=== PATIENT | male | born 1955 | race Caucasian/White ===

== ENCOUNTER 2021-08-08 20:08 | Inpatient (IN) ==
[2021-08-08] MEDS ORDERED: IOPAMIDOL 100 ML BOTTLE IV ONE (20:09)
--- NOTE | 2021-08-08 20:14 | Emergency Department Note ---
HPI General Chief complaint: Shortness of Breath/Dyspnea Stated complaint: shortness of breath Time Seen by Provider: 08/08/21 20:14 Source: patient and EMS Mode of arrival: EMS Limitations: no limitations History of Present Illness HPI Narrative: 65-year-old male with past medical history of COPD and possibly CAD presenting with chest pain and shortness of breath. Patient states about 2 and half hours prior to arrival he developed intermittent left-sided, sharp stabbing chest pain. Pain seems to be worse with deep breathing. Also endorses mild shortness of breath. He reportedly was hypoxic to 88% on room air. He was given 100 mcg of fentanyl and nitroglycerin by EMS without improvement in his pain. Patient states that previously there was an attempt to place a stent in his heart but they were unable to place it. He reportedly was on anticoagulation but is no longer on it. Unclear if he has an actual history of CAD or [place]. Patient denies any history of pulmonary embolism or DVT. No fever, cough, vomiting, abdominal pain, or leg swelling. He is a smoker, approximately half pack per day. Filemon mann notes he was watching football when the pain began. He states he has had a few beers and a few shots today. Not on home O2. Related Data Home Medications Medication Instructions Recorded Confirmed budesonide-formoterol HFA 160 2 puff CONTINUOUS INHALATION BID 08/09/21 08/09/21 mcg-4.5 mcg/actuation aerosol inhaler (Symbicort) clonazepam 1 mg tablet 1 tab PO QHS 08/09/21 08/09/21 ipratropium 0.5 mg-albuterol 3 mg 3 ml CONTINUOUS NEBULIZATION QID 08/09/21 08/09/21 (2.5 mg base)/3 mL nebulization PRN soln lisinopril 5 mg tablet 1 tab PO QDAY 08/09/21 08/09/21 phenobarbital 97.2 mg tablet 2 tab PO QHS 08/09/21 08/09/21 rosuvastatin 40 mg tablet 1 tab PO QDAY 08/09/21 08/09/21 tiotropium bromide 18 mcg capsule 1 cap CONTINUOUS INHALATION QDAY 08/09/21 08/09/21 with inhalation device (Spiriva with HandiHaler) Allergies Allergy/AdvReac Type Severity Reaction Status Date / Time promethazine [From Phenergan] Allergy Unknown Verified 08/08/21 20:17 indomethacin [From Indocin] Allergy Verified 08/08/21 20:17 Review of Systems ROS ROS Narrative: Narrative: Constitutional: Denies fever or chills Eyes: Denies vision change ENT ED: Denies throat pain Cardiovascular: Reports chest pain; Denies palpitations, edema or syncope Respiratory: Reports shortness of breath; Denies cough Gastrointestinal: Denies abdominal pain, nausea or vomiting Genitourinary: Denies dysuria or frequency Musculoskeletal: Denies back pain or joint swelling Integumentary: Denies rash Neurological: Denies headache or weakness Psychiatric: Denies anxiety Endocrine: Denies fatigue Hematological/Lymphatic: Denies easy bleeding PFSH Narrative Patient History Narrative: Narrative: Medical/Surgical/Family History All Active Problems (Updated 08/09/21 @ 01:13 by Elmo Casper MD) Hypoxia (Acute) Lung mass (Acute) COPD (chronic obstructive pulmonary disease) (Acute) Exam Narrative Narrative: Narrative: General Limitations: no limitations General appearance: Present alert, in no apparent distress and other (Oc casionally wincing in pain) Head Head: Present atraumatic and normocephalic Eye Eye: Present normal appearance and EOMI; Absent scleral icterus or conjunctival injection ENT ENT: Present mucous membranes moist Neck Neck: Present normal inspection, full ROM and trachea midline Chest Chest: Present symmetric chest wall rise Respiratory Respiratory: Present normal lung sounds bilaterally; Absent respiratory distress, wheezes, stridor, accessory muscle use or prolonged expiratory phase Cardiovascular Cardiovascular: Present regular rate and normal rhythm; Absent systolic murmur or diastolic murmur Adbominal Abdominal: Present soft; Absent distention, tenderness, guarding, rebound, rigidity, organomegaly or mass Extremities Extremities: Present normal inspection; Absent pretibial edema Back Back: Present normal inspection Neurological Neurological: Present alert, oriented X3 and CN II-XII intact; Absent motor sensory deficit Psychiatric Psychiatric: Present normal affect and normal mood Skin Skin: Present warm (WNL) and dry Course Consultations Consultation #1: Dr. Ferguson, hospitalist Time: 00:50 Vital Signs Vital signs: Vital Signs Pulse Rate 88 08/08/21 20:13 Respiratory Rate 16 08/08/21 20:13 Blood Pressure 108/59 08/08/21 20:13 Pulse Oximetry (%) 91 08/08/21 20:13 Temperature 98.5 F 08/08/21 20:14 Pulse Rate 82 08/09/21 00:46 Respiratory Rate 20 08/09/21 00:46 Blood Pressure 109/68 08/09/21 00:46 Pulse Oximetry (%) 90 08/09/21 00:46 MDM MDM Narrative Medical decision making narrative: 65-year-old male presenting with chest pain and dyspnea. He was hypoxic to 88% on room air here. He is stable on 3 L via nasal cannula. Patient still endorsing stabbing episodes of pain every few minutes that resolved spontaneously. EKG shows subtle ST changes in II, III, and aVF without reciprocal changes. Concern for acute coronary syndrome versus pulmonary emboli sm. IV morphine given for pain. Will obtain labs, chest x-ray, and reevaluate. Labs notable for mild hyponatremia to 132 but are otherwise normal. Troponin is negative. Patient's pain improved after IV Toradol. He remains hypoxic when trying to wean off of O2. CTA of the chest shows no pulmonary embolus but a 3.6 x 1.2 cm masslike density is present in the left lung which may be new maligna ncy. Given his persistent hypoxia and CT findings, will admit for further management. Prednisone 60 mg p.o. given as there may be a component of COPD to his hypoxemia. Patient discussed with admitting hospitalist, Dr. Ferguson. Holding orders placed. Lab Data Lab results reviewed: Yes I reviewed the patient's lab results. Result diagrams: 08/08/21 20:45 08/08/21 20:45 Labs: Lab Results 08/08/21 08/08/21 08/08/21 Range/Units 20:45 20:45 20:45 WBC 7.3 (4.5-11.0) K/mcL RBC 4.73 (4.63-6.08) M/mcL Hgb 14.2 (13.7-17.5) g/dL Hct 42.7 (40.1-51.0) % MCV 90.3 (80.0-100.0) fL MCH 30.0 (26.0-34.0) pg MCHC 33.3 (31.0-36.0) g/dL RDW 14.6 H (11.5-14.5) % Plt Count 183 (140-440) K/mcL MPV 10.2 (7.4-10.4) fL Neut % (Auto) 80.1 H (38.0-78.0) % Lymph % (Auto) 9.0 L (15.5-49.0) % [place] % (Auto) 8.7 (1.0-12.0) % Eos % (Auto) 1.4 (0.0-7.0) % Baso % (Auto) 0.8 (0.0-2.0) % Lymph # (Auto) 0.65 L (1.50-4.80) K/mcL [place] # (Auto) 0.63 (0.10-0.90) K/mcL Eos # (Auto) 0.10 (0.00-0.70) K/mcL Baso # (Auto) 0.06 (0.00-0.30) K/mcL Absolute Neutrophils 5.81 (1.80-8.00) K/mcL D-Dimer 0.33 (0.27-0.50) ug/mL Sodium 132 L (133-145) mmol/L Potassium 4.2 (3.3-5.1) mmol/L Chloride 96 (96-108) mmol/L Carbon Dioxide 23 (22-30) mmol/L Anion Gap 13.0 (8.0-16.0) BUN 13 (8-23) mg/dL Creatinine 0.6 L (0.7-1.2) mg/dL GFR Calculation 106 Glucose 107 H (70-105) mg/dL Calcium 7.8 L (8.6-10.4) mg/dL Total Bilirubin < 0.2 (0.1-1.0) mg/dL AST 17 (<40) U/L ALT 14 (<40) U/L Alkaline Phosphatase 78 (39-117) U/L Troponin T (<0.03) ng/mL Total Protein 6.6 (5.9-8.4) gm/dL Albumin 3.9 (3.2-5.2) gm/dL Globulin 2.7 (2.2-3.7) gm/dL Albumin/Globulin Ratio 1.4 (1.0-2.3) POC Troponin I 0.02 (0.02-0.08) ng/mL 08/08/21 Range/Units 20:45 WBC (4.5-11.0) K/mcL RBC (4.63-6.08) M/mcL Hgb (13.7-17.5) g/dL Hct (40.1-51.0) % MCV (80.0-100.0) fL MCH (26.0-34.0) pg MCHC (31.0-36.0) g/dL RDW (11.5-14.5) % Plt Count (140-440) K/mcL MPV (7.4-10.4) fL Neut % (Auto) (38.0-78.0) % Lymph % (Auto) (15.5-49.0) % [place] % (Auto) (1.0-12.0) % Eos % (Auto) (0.0-7.0) % Baso % (Auto) (0.0-2.0) % Lymph # (Auto) (1.50-4.80) K/mcL [place] # (Auto) (0.10-0.90) K/mcL Eos # (Auto) (0.00-0.70) K/mcL Baso # (Auto) (0.00-0.30) K/mcL Absolute Neutrophils (1.80-8.00) K/mcL D-Dimer (0.27-0.50) ug/mL Sodium (133-145) mmol/L Potassium (3.3-5.1) mmol/L Chloride (96-108) mmol/L Carbon Dioxide (22-30) mmol/L Anion Gap (8.0-16.0) BUN (8-23) mg/dL Creatinine (0.7-1.2) mg/dL GFR Calculation Glucose (70-105) mg/dL Calcium (8.6-10.4) mg/dL Total Bilirubin (0.1-1.0) mg/dL AST (<40) U/L ALT (<40) U/L Alkaline Phosphatase (39-117) U/L Troponin T < 0.01 (<0.03) ng/mL Total Protein (5.9-8.4) gm/dL Albumin (3.2-5.2) gm/dL Globulin (2.2-3.7) gm/dL Albumin/Globulin Ratio (1.0-2.3) POC Troponin I (0.02-0.08) ng/mL ED POC Tests ED POC Tests: SUZETTE - SARS Antigen Negative Radiology Data Radiology results reviewed: Yes I reviewed the patient's radiology results. Radiology results narrative: CXR: Mass versus nodule in the left lung, no focal infiltrate, per my interpretation. CTA chest: No pulmonary embolus. 3.6 x 1.2 cm masslike density in the left lingula with irregular margins, infectious consolidative change versus scarring versus pulmonary mass, per outside radiology interpretation. EKG Data EKG #1: EKG attestation: Yes I reviewed and interpreted this EKG. EKG results narrative: Normal sinus rhythm at [address] elevations not greater than 1 mm noted in II, III, and aVF without reciprocal changes. Interpretation: nonspecific ST-T wave changes EKG #2: EKG attestation: Yes I reviewed and interpreted this EKG. and Yes There are no EKG findings of acute coronary syndrome EKG results narrative: Normal sinus rhythm at [address] elevation or depression noted. Subtle ST changes in inferior leads are no longer evident when compared to previous EKG. Interpretation: no acute changes Discharge Plan Patient/Caregiver Discharge Instructions Pt seen by NEUROLOGY TECHNICIAN/PA only: No Clinical Impression: Hypoxia, Lung mass, COPD (chronic obstructive pulmonary disease) Patient Disposition: Xfer As Inpt ([facility]) Follow up with: No,PCP [Referring] - Prescriptions: No Action phenobarbital 97.2 mg tablet 2 tab PO QHS 0RF ipratropium-albuterol 0.5 mg-3 mg(2.5 mg base)/3 mL solution for nebulization 3 ml continuous nebulization QID PRN (Reason: Shortness Of Breath) 0RF clonazepam 1 mg tablet 1 tab PO QHS 0RF lisinopril 5 mg tablet 1 tab PO QDAY 0RF rosuvastatin 40 mg tablet 1 tab PO QDAY 0RF Spiriva with HandiHaler 18 mcg capsule, w/inhalation device 1 cap continuous inhalation QDAY 0RF budesonide-formoterol [Symbicort] 160-4.5 mcg/actuation HFA aerosol inhaler 2 puff continuous inhalation BID 0RF
[2021-08-08] MEDS ORDERED: ASPIRIN 81 MG TAB.CHEW CHEWED ONE (20:26)
[2021-08-08] MEDS ORDERED: morphine 4 MG/ML VIAL IV ONE (20:26)
[2021-08-08] MEDS ORDERED: 0.9 % SODIUM CHLORIDE 1,000 ML IV ONE (20:39)
[2021-08-08] MEDS ORDERED: HYDROmorphone 1 MG/ML SYRINGE IV ONE (20:57)
[2021-08-08 22:14] LABS: Basophils # (Auto) 0.06 K/mcL (0.00-0.30); Basophils % (Auto) 0.8 % (0.0-2.0); Eosinophils % (Auto) 1.4 % (0.0-7.0); Hematocrit 42.7 % (40.1-51.0); Hemoglobin 14.2 g/dL (13.7-17.5); Lymphocytes # (Auto) 0.65 K/mcL (1.50-4.80); Mean Cell Volume 90.3 fL (80.0-100.0); Mean Corpuscular HGB Conc 33.3 g/dL (31.0-36.0); Mean Platelet Volume 10.2 fL (7.4-10.4); Monocytes # (Auto) 0.63 K/mcL (0.10-0.90); Monocytes % (Auto) 8.7 % (1.0-12.0); Neutrophils % (Auto) 80.1 % (38.0-78.0); Platelet Count 183 K/mcL (140-440); RBC 4.73 M/mcL (4.63-6.08); Red Cell Distribution Width 14.6 % (11.5-14.5); WBC 7.3 K/mcL (4.5-11.0)
[2021-08-08] MEDS ORDERED: KETOROLAC 30 MG/ML VIAL IV ONE (22:34)
[2021-08-08 22:39] LABS: ALT/SGPT 14 U/L (<40); AST/SGOT 17 U/L (<40); Albumin 3.9 gm/dL (3.2-5.2); Albumin/Globulin Ratio 1.4 (1.0-2.3); Alkaline Phosphatase 78 U/L (39-117); Bilirubin,Total < 0.2 mg/dL (0.1-1.0); Blood Urea Nitrogen 13 mg/dL (8-23); Calcium 7.8 mg/dL (8.6-10.4); Carbon Dioxide 23 mmol/L (22-30); Chloride 96 mmol/L (96-108); Globulin 2.7 gm/dL (2.2-3.7); Glomerular Filtration Rate 106; Glucose 107 mg/dL (70-105)
[2021-08-09] MEDS ORDERED: predniSONE 20 MG TABLET PO ONE (00:55)
[2021-08-09] MEDS ORDERED: ACETAMINOPHEN 160 MG/5 ML ORAL.SOL PO PRN (01:13)
[2021-08-09] MEDS: morphine 2 MG/ML VIAL IV PRN ×2 (01:59→05:27)
[2021-08-09] MEDS ORDERED: 0.9 % SODIUM CHLORIDE 10 ML SYRINGE IV SCH (06:00)
--- NOTE | 2021-08-09 06:44 | XRay Report ---
CLINICAL INFORMATION: Chest pain and dyspnea COMPARISON: None. TECHNIQUE: PA and Lateral views FINDINGS: The heart size, mediastinum and pulmonary vessels are unremarkable. Hyperventilatory changes suggesting bronchitis or asthma appreciated. No infiltrates. A 15 mm densely calcified granuloma is seen in the left lower lobe with a few tiny calcified granulomas in the perihilar regions of both lungs. There are no effusions. The bones and soft tissues are within normal limits. IMPRESSION: Bronchitis. 15 mm calcified left lower lobe benign granuloma Interpreted and Authenticated by: Joaquim Edwards 08/09/21
--- NOTE | 2021-08-09 08:03 | Internal Med History&Physical ---
HPI History of Present Illness Patient information: Note initiated : 08/09/21 at 7:57 am Service Date, if different from initiated Date: [] Patient: Pito Christine a 65 y/o M admitted on 08/09/21 for shortness of breath. Chief Complaint: [] History of present illness: Mr. Christine is a 65 year old M Presents to ED with intermittent stabbing left-sided chest pain as well as some shortness of breath. It is pleuritic in nature and made worse with deep breathing. It was noted to be 88% of oxygen on room air by EMS. He is active smoker. Work-up in the ER revealed an unremarkable troponin. Sodium mildly low. He was hypoxic when weaned off O2. I was told overnight that the CT of the chest showed no pulmonary embolism but a 3.6 x 1.2 cm masslike density in the left lung is concerning for new malignancy. The follow-up read by our radiologist mentions no PE it does show a small pleural-based lesion representing likely fibrosis, moderate bronchitis like chronicity as shown. Calcified granuloma left apex noted. No mention of 3.6 x 1.2 mass. Patient was treated for COPD admitted due to oxygen requirement. Patient denied feeling short of breath, he has a chronic cough. Patient states the chest pain is worsened by cough and patient states it feels like a muscle. Action saturations on room air while I talk to them ranged from 85-89. Patient denies shortness of breath. Is not been evaluated in the past or home oxygen. Patient wanting to go home right now and I believe he will leave AGAINST MEDICAL ADVICE if he does not get out today. I told him that I wanted to get him evaluated from oxygen because it appeared to qualify. Review of Systems: Pertinent positive as above. Denies headache/fever/chills/nausea/vomiting/chest or abdominal pain/cough/dyspnea/diarrhea. Remaining 10 point review of system reviewed and negative PFSH PFSH All Active Problems (Updated 08/09/21 @ 01:13 by Elmo Casper MD) Hypoxia (Acute) Lung mass (Acute) COPD (chronic obstructive pulmonary disease) (Acute) MEDS/ALLERGIES Home Medications and Allergies Home Medications Medication Instructions Recorded Confirmed Type amitriptyline 25 mg tablet 1 tab PO HS 08/09/21 08/09/21 History budesonide-formoterol HFA 160 2 puff CONTINUOUS INHALATION BID 08/09/21 08/09/21 History mcg-4.5 mcg/actuation aerosol inhaler (Symbicort) clonazepam 1 mg tablet 1 tab PO QHS 08/09/21 08/09/21 History ipratropium 0.5 mg-albuterol 3 mg 3 ml CONTINUOUS NEBULIZATION QID 08/09/21 08/09/21 History (2.5 mg base)/3 mL nebulization PRN soln lisinopril 5 mg tablet 1 tab PO QDAY 08/09/21 08/09/21 History phenobarbital 97.2 mg tablet 2 tab PO QHS 08/09/21 08/09/21 History rosuvastatin 40 mg tablet 1 tab PO QDAY 08/09/21 08/09/21 History tiotropium bromide 18 mcg capsule 1 cap CONTINUOUS INHALATION QDAY 08/09/21 08/09/21 History with inhalation device (Spiriva with HandiHaler) Allergies Allergy/AdvReac Type Severity Reaction Status Date / Time Penicillins Allergy Severe Anaphylaxis Verified 08/09/21 02:06 promethazine [From Phenergan] Allergy Unknown Verified 08/08/21 20:17 indomethacin [From Indocin] Allergy Verified 08/08/21 20:17 EXAM Constitutional Vitals: Temp Pulse Resp BP Pulse Ox 98.2 F 70 16 106/64 94 08/09/21 06:51 08/09/21 06:51 08/09/21 06:51 08/09/21 06:51 08/09/21 06:51 Exam: General: Alert, Awake, No acute Distress Eyes/N/T: EOMI, PERRL, Head/Neck: neck supple, normocephalic atraumatic CV: RRR, No murmurs, normal s1/s2 Pulm: Clear b/l, no wheezing/rhonchi/rales. Prolonged expiratory phase Abd: soft, nontender, +BS x4 Ext: no clubbing/cyanosis/edema Neuro: Alert, no focal deficits, moves all extremities, CN 2-12 grossly intact, symmetrical strength b/l upper/lower, sensations intact b/l upper/lower Skin: warm/dry DATA Data Completed and Pending Labs: Labs from last 24 hours 08/08/21 08/08/21 08/08/21 20:45 20:45 20:45 WBC RBC Hgb Hct MCV MCH MCHC RDW Plt Count MPV Neut % (Auto) Lymph % (Auto) [place] % (Auto) Eos % (Auto) Baso % (Auto) Lymph # (Auto) [place] # (Auto) Eos # (Auto) Baso # (Auto) Absolute Neutrophils D-Dimer 0.33 Sodium 132 L Potassium 4.2 Chloride 96 Carbon Dioxide 23 Anion Gap 13.0 BUN 13 Creatinine 0.6 L GFR Calculation 106 Glucose 107 H Calcium 7.8 L Total Bilirubin < 0.2 AST 17 ALT 14 Alkaline Phosphatase 78 Troponin T < 0.01 Total Protein 6.6 Albumin 3.9 Globulin 2.7 Albumin/Globulin Ratio 1.4 POC Troponin I 0.02 08/08/21 20:45 WBC 7.3 RBC 4.73 Hgb 14.2 Hct 42.7 MCV 90.3 MCH 30.0 MCHC 33.3 RDW 14.6 H Plt Count 183 MPV 10.2 Neut % (Auto) 80.1 H Lymph % (Auto) 9.0 L [place] % (Auto) 8.7 Eos % (Auto) 1.4 Baso % (Auto) 0.8 Lymph # (Auto) 0.65 L [place] # (Auto) 0.63 Eos # (Auto) 0.10 Baso # (Auto) 0.06 Absolute Neutrophils 5.81 D-Dimer Sodium Potassium Chloride Carbon Dioxide Anion Gap BUN Creatinine GFR Calculation Glucose Calcium Total Bilirubin AST ALT Alkaline Phosphatase Troponin T Total Protein Albumin Globulin Albumin/Globulin Ratio POC Troponin I A/P Narrative A/P Narrative: A: *Pleuritic chest pain likely MSK: *Acute vs more likely chronic hypoxic respiratory failure: 2/2 underlying COPD *COPD (not on home O2): I suspect that he has had chronically low oxygen given his underlying COPD given his asymptomatic status *No lung mass on official CTA read by our radiologist *Tobacco abuse: *HTN/HLD: *Depression/anxiety: *Hyponatremia, mild: P: -Home oxygen evaluation by RD -cont home pysch meds -hold home ACEI for low normal BP -Smoking cessation counseling -Patient wanted to go home and suspect will leave AMA if does not go, I told him I wanted to get home oxygen evaluation set up because he will likely qualify. I will send him home once I get the home oxygen set up. -ppx: lovenox Time Spent With Patient Time: Total time spent is greater than 50% in coordination of care (as documented) at patient's floor/unit and/or counseling patient: QUALITY VTE Deep Vein Thrombosis/Pulmonary Embolism Present on Admission: No
--- NOTE | 2021-08-09 08:09 | Cat Scan Report ---
CLINICAL INFORMATION: Chest pain and dyspnea COMPARISON: None. TECHNIQUE: 80ml of Isovue-370 were injected intravenously. Using SmartPrep to maximize pulmonary artery opacification, .625mm helical slices were obtained from the lung apices through the lung bases. Following reconstruction, 2.5 mm sagittal, coronal, and axial reformations were processed. The exam was reviewed at mediastinal, lung, and bone windows. The exam was performed using radiation dose optimization techniques including, but not limited to, automated exposure control, adjustment of the mA and/or kV according to patient size and use of iterative reconstruction technique. FINDINGS: Pulmonary parenchymal windows show elevated lung volumes and wall thickening/dilatation of the bronchi compatible with moderate bronchitis or asthma. Moderate chronic bronchitis or asthma. Two densely calcified granulomas are present in the left lun mm in the lateral left lower lobe and 8 mm the left apex. Few tiny calcified granulomas seen in the perihilar regions. There are no soft tissue nodules. A small consolidated region of airspace disease in the lingular region likely represents fibrosis. There is also other smaller scattered pleural-based foci of scarring throughout both mid and lower lungs. Pleural spaces are unremarkable-no effusions. Mediastinal windows show the heart is grossly normal in size and configuration. The pulmonary arteries are normal diameter and well-opacified without evidence of embolus. The ascending thoracic aorta measures the upper limits of normal for age: 3.9 cm. The thoracic aortic arch and descending thoracic aorta are also normal in diameter. Mild diffuse intimal thickening appreciated There is no adenopathy in the mediastinal, hilar or axillary regions. Esophagus is grossly normal. The thyroid is unremarkable. Bones and soft tissues the chest wall are normal. Images through the superior abdomen are unremarkable. IMPRESSION: 1. No evidence of pulmonary embolus or other acute cardiopulmonary process. 2. Small pleural-based region of consolidation in the lingular region almost certainly represents fibrosis. A small pneumonia is possible, but less likely. Suggest plain film follow-up in 3-4 weeks. 3. Moderate bronchitis-likely chronic. 4. Calcified granulomas in the left apex and left lower lobe. No evidence of pulmonary malignancy. Interpreted and Authenticated by: Joaquim Edwards 08/09/21
[2021-08-09] MEDS ORDERED: ATORVASTATIN 40 MG TABLET PO SCH (09:00)
[2021-08-09] MEDS ORDERED: TIOTROPIUM BROMIDE 18 MCG INHALANT INH SCH (09:00)
[2021-08-09] MEDS ORDERED: methylPREDNISolone SOD SUCC 40 MG/ML VIAL IV SCH (09:00)
[2021-08-09] MEDS ORDERED: PHENobarbital 32.4 MG TABLET PO SCH (09:00)
[2021-08-09 09:10] LABS: Hematocrit 46.5 % (40.1-51.0); Hemoglobin 15.1 g/dL (13.7-17.5); Mean Cell Volume 91.2 fL (80.0-100.0); Mean Corpuscular HGB Conc 32.5 g/dL (31.0-36.0); Mean Platelet Volume 9.9 fL (7.4-10.4); Platelet Count 185 K/mcL (140-440); Red Cell Distribution Width 14.6 % (11.5-14.5)
[2021-08-09 09:45] LABS: ALT/SGPT 135 U/L (<40); AST/SGOT 191 U/L (<40); Albumin 4.3 gm/dL (3.2-5.2); Albumin/Globulin Ratio 1.9 (1.0-2.3); Alkaline Phosphatase 137 U/L (39-117); Bilirubin,Direct < 0.2 mg/dL (0-0.3); Bilirubin,Total 0.2 mg/dL (0.1-1.0); Blood Urea Nitrogen 13 mg/dL (8-23); Calcium 8.4 mg/dL (8.6-10.4); Carbon Dioxide 27 mmol/L (22-30); Chloride 96 mmol/L (96-108); Globulin 2.3 gm/dL (2.2-3.7); Glomerular Filtration Rate 106; Glucose 154 mg/dL (70-105); Lactate Dehydrogenase 324 U/L (135-225); Phosphorous 3.3 mg/dL (2.5-4.5); Triglycerides 53 mg/dL (<150); Uric Acid 5.8 mg/dL (2.5-8.0)
[2021-08-09 09:49] LABS: Lymphocytes % 5 % (15-49); Monocytes % (Manual) 1 % (1-12); Platelet Estimate NORMAL (Normal); RBC Morphology NORMAL (Normal); Segmented Neutrophils % 94 % (38-78)
[2021-08-09 10:21] LABS: Erythrocyte Sedimentation Rate 11 mm/hr (0-15)
[2021-08-09] MEDS ORDERED: INSULIN REGULAR, HUMAN 1 UNIT/0.01 ML UNIT IV ONE (10:21)
[2021-08-09] MEDS ORDERED: DEXTROSE 50% 50 ML SYRINGE IV ONE (10:21)
--- NOTE | 2021-08-09 10:26 | Discharge Summary ---
Discharge Provider Provider Patient information: Note initiated : 08/09/21 at 10:24 am Service Date, if different from initiated Date: [] Patient: Pito Christine 65 y/o M admitted on 08/09/21 for shortness of breath. Chief Complaint: [] Date of admission: 08/09/21 01:24 Discharge date: 08/09/21 Primary care physician: Unknown Unknown Consults: 08/09/21 Consult to Physician [CONS] Stat Comment: Consulting Provider: Parrish Ferguson Reason For Exam: Physician to Consult Discharge Meds Discharge Medications Home Medications amitriptyline 25 mg tablet 1 tab PO HS 08/09/21 [History Confirmed 08/09/21 Last Taken 08/08/21 21:00] budesonide-formoterol HFA 160 mcg-4.5 mcg/actuation aerosol inhaler (Symbicort) 2 puff CONTINUOUS INHALATION BID 08/09/21 [History Confirmed 08/09/21 Last Taken 08/08/21 21:00] clonazepam 1 mg tablet 1 tab PO QHS 08/09/21 [History Confirmed 08/09/21 Last Taken 08/07/21 21:30] ipratropium 0.5 mg-albuterol 3 mg (2.5 mg base)/3 mL nebulization soln 3 ml CONTINUOUS NEBULIZATION QID PRN 08/09/21 [History Confirmed 08/09/21 Last Taken 08/08/21 19:00 6 ml] phenobarbital 97.2 mg tablet 2 tab PO QHS 08/09/21 [History Confirmed 08/09/21 Last Taken 08/07/21 21:30] rosuvastatin 40 mg tablet 1 tab PO QDAY 08/09/21 [History Confirmed 08/09/21 Last Taken 08/08/21 07:00] tiotropium bromide 18 mcg capsule with inhalation device (Spiriva with HandiHaler) 1 cap CONTINUOUS INHALATION QDAY 08/09/21 [History Confirmed 08/09/21 Last Taken 08/08/21 09:00] COURSE Hospital Course Hospital course: History of present illness: Mr. Christine is a 65 year old M Presents to ED with intermittent stabbing left-sided chest pain as well as some shortness of breath. It is pleuritic in nature and made worse with deep breathing. It was noted to be 88% of oxygen on room air by EMS. He is active smoker. Work-up in the ER revealed an unremarkable troponin. Sodium mildly low. He was hypoxic when weaned off O2. I was told overnight that the CT of the chest showed no pulmonary embolism but a 3.6 x 1.2 cm masslike density in the left lung is concerning for new malignancy. The follow-up read by our radiologist mentions no PE it does show a small pleural-based lesion representing likely fibrosis, moderate bronchitis like chronicity as shown. Calcified granuloma left apex noted. No mention of 3.6 x 1.2 mass. Patient was treated for COPD admitted due to oxygen requirement. Patient denied feeling short of breath, he has a chronic cough. Patient states the chest pain is worsened by cough and patient states it feels like a muscle. Action saturations on room air while I talk to them ranged from 85-89. Patient denies shortness of breath. Is not been evaluated in the past or home oxygen. Patient wanting to go home right now and I believe he will leave AGAINST MEDICAL ADVICE if he does not get out today. I told him that I wanted to get him evaluated from oxygen because it appeared to qualify. Labs came back quite different than yesterday. Now showing hyperkalemia and elevated transaminitis. will repeat to eval for lab error. Patient refused home oxygen evaluation by RT Patient left AMA A: *Pleuritic chest pain likely MSK: *Acute vs more likely chronic hypoxic respiratory failure: 2/2 underlying COPD *COPD (not on home O2): I suspect that he has had chronically low oxygen given his underlying COPD given his asymptomatic status *No lung mass on official CTA read by our radiologist *Tobacco abuse: *HTN/HLD: *Depression/anxiety: *Hyponatremia, mild: *Transaminitis: Discharge diagnosis: Acute on chronic hypoxic respiratory failure allergic chest pain COPD Secondary discharge diagnosis: Tobacco abuse hypertension depression anxiety Time Spent with Patient Time attestation: Total time spent providing and/or coordinating discharge services: Time spent: Greater than 30 minutes EXAM Constitutional Vitals: Temp Pulse Resp BP Pulse Ox 98.2 F 70 16 106/64 94 08/09/21 06:51 08/09/21 06:51 08/09/21 06:51 08/09/21 06:51 08/09/21 06:51 Discharge Data Data Completed and Pending Labs on day of discharge: Labs from last 24 hours 08/09/21 08/09/21 08/09/21 08:28 08:27 08:27 WBC 5.0 RBC 5.10 Hgb 15.1 Hct 46.5 MCV 91.2 MCH 29.6 MCHC 32.5 RDW 14.6 H Plt Count 185 MPV 9.9 Neut % (Auto) Lymph % (Auto) [place] % (Auto) Eos % (Auto) Baso % (Auto) Lymph # (Auto) [place] # (Auto) Eos # (Auto) Baso # (Auto) Seg Neutrophils % 94 H Lymphocytes % 5 L Monocytes % (Manual) 1 Absolute Neutrophils Platelet Estimate Normal RBC Morphology Normal ESR 11 D-Dimer Sodium 133 Potassium 5.9 H* Chloride 96 Carbon Dioxide 27 Anion Gap 10.0 BUN 13 Creatinine 0.6 L GFR Calculation 106 Glucose 154 H Uric Acid 5.8 Calcium 8.4 L Phosphorus 3.3 Magnesium 2.3 Total Bilirubin 0.2 Direct Bilirubin < 0.2 GGT 366 H AST 191 H ALT 135 H Alkaline Phosphatase 137 H Lactate Dehydrogenase 324 H Troponin T C-Reactive Protein 2.40 H Total Protein 6.6 Albumin 4.3 Globulin 2.3 Albumin/Globulin Ratio 1.9 Triglycerides 53 Procalcitonin 0.07 POC Troponin I 08/08/21 08/08/21 08/08/21 20:45 20:45 20:45 WBC RBC Hgb Hct MCV MCH MCHC RDW Plt Count MPV Neut % (Auto) Lymph % (Auto) [place] % (Auto) Eos % (Auto) Baso % (Auto) Lymph # (Auto) [place] # (Auto) Eos # (Auto) Baso # (Auto) Seg Neutrophils % Lymphocytes % Monocytes % (Manual) Absolute Neutrophils Platelet Estimate RBC Morphology ESR D-Dimer 0.33 Sodium 132 L Potassium 4.2 Chloride 96 Carbon Dioxide 23 Anion Gap 13.0 BUN 13 Creatinine 0.6 L GFR Calculation 106 Glucose 107 H Uric Acid Calcium 7.8 L Phosphorus Magnesium Total Bilirubin < 0.2 Direct Bilirubin GGT AST 17 ALT 14 Alkaline Phosphatase 78 Lactate Dehydrogenase Troponin T < 0.01 C-Reactive Protein Total Protein 6.6 Albumin 3.9 Globulin 2.7 Albumin/Globulin Ratio 1.4 Triglycerides Procalcitonin POC Troponin I 0.02 08/08/21 20:45 WBC 7.3 RBC 4.73 Hgb 14.2 Hct 42.7 MCV 90.3 MCH 30.0 MCHC 33.3 RDW 14.6 H Plt Count 183 MPV 10.2 Neut % (Auto) 80.1 H Lymph % (Auto) 9.0 L [place] % (Auto) 8.7 Eos % (Auto) 1.4 Baso % (Auto) 0.8 Lymph # (Auto) 0.65 L [place] # (Auto) 0.63 Eos # (Auto) 0.10 Baso # (Auto) 0.06 Seg Neutrophils % Lymphocytes % Monocytes % (Manual) Absolute Neutrophils 5.81 Platelet Estimate RBC Morphology ESR D-Dimer Sodium Potassium Chloride Carbon Dioxide Anion Gap BUN Creatinine GFR Calculation Glucose Uric Acid Calcium Phosphorus Magnesium Total Bilirubin Direct Bilirubin GGT AST ALT Alkaline Phosphatase Lactate Dehydrogenase Troponin T C-Reactive Protein Total Protein Albumin Globulin Albumin/Globulin Ratio Triglycerides Procalcitonin POC Troponin I Discharge Plan Patient/Caregiver Discharge Instructions Activity: increase activity as tolerated Diet: Regular Diet Activity Restrictions/Additional Instructions: Home oxygen for COPD Prescriptions: Continued phenobarbital 97.2 mg tablet 2 tab PO QHS 0RF ipratropium-albuterol 0.5 mg-3 mg(2.5 mg base)/3 mL solution for nebulization 3 ml continuous nebulization QID PRN (Reason: Shortness Of Breath) 0RF clonazepam 1 mg tablet 1 tab PO QHS 0RF rosuvastatin 40 mg tablet 1 tab PO QDAY 0RF Spiriva with HandiHaler 18 mcg capsule, w/inhalation device 1 cap continuous inhalation QDAY 0RF budesonide-formoterol [Symbicort] 160-4.5 mcg/actuation HFA aerosol inhaler 2 puff continuous inhalation BID 0RF amitriptyline 25 mg tablet 1 tab PO HS 0RF Discontinued lisinopril 5 mg tablet 1 tab PO QDAY 0RF Follow Up Plan Follow up with: No,PCP [Referring] - Patient Disposition: Left Against Medical Advice Prognosis: Undetermined QUALITY VTE Deep Vein Thrombosis/Pulmonary Embolism Present on Admission: No
[2021-08-09 11:48] LABS: ALT/SGPT 130 U/L (<40); AST/SGOT 161 U/L (<40); Albumin 4.2 gm/dL (3.2-5.2); Albumin/Globulin Ratio 1.4 (1.0-2.3); Alkaline Phosphatase 137 U/L (39-117); Bilirubin,Direct < 0.2 mg/dL (0-0.3); Bilirubin,Total 0.3 mg/dL (0.1-1.0); Blood Urea Nitrogen 15 mg/dL (8-23); Calcium 8.5 mg/dL (8.6-10.4); Carbon Dioxide 25 mmol/L (22-30); Chloride 95 mmol/L (96-108); Globulin 3.1 gm/dL (2.2-3.7); Glomerular Filtration Rate 106; Glucose 175 mg/dL (70-105); Lactate Dehydrogenase 304 U/L (135-225); Phosphorous 3.4 mg/dL (2.5-4.5); Triglycerides 54 mg/dL (<150); Uric Acid 5.5 mg/dL (2.5-8.0)
[2021-08-09] MEDS ORDERED: PHENOBARBITAL 97.2 MG PO SCH (21:00)
[2021-08-09] MEDS ORDERED: AMITRIPTYLINE 25 MG TABLET PO SCH (21:00)
[2021-08-09] MEDS ORDERED: clonazePAM 1 MG TABLET PO SCH (21:00)
--- NOTE | 2021-08-10 07:20 | EKG ---
[facility] Test Date: 2021-08-08 Pat Name: Pito Christine Department: ED Room: Gender: Male [employer]: CS : 1955 Requested By: Elmo Casper Order Number: [id number] Anjana MD: Joaquim Vera M.D. Measurements Intervals [place] Rate: 85 P: 76 [place]: 166 QRS: 57 QRSD: 97 T: 65 QT: 363 QTc: 432 Interpretive Statements Sinus rhythm Borderline low voltage, extremity leads Electronically Signed On 08-10-2021 7:20:25 PST by Joaquim Vera M.D. /[id number]
--- NOTE | 2021-08-10 07:20 | EKG ---
[facility] Test Date: 2021-08-08 Pat Name: Pito Christine Department: ED Room: Gender: Male [employer]: CHRISTINE : 1955 Requested By: Elmo Casper Order Number: [id number] [place] MD: Joaquim Vera M.D. Measurements Intervals [place] Rate: 84 P: 79 [place]: 172 QRS: 68 QRSD: 88 T: 73 QT: 363 QTc: 430 Interpretive Statements Sinus rhythm Probable left atrial enlargement Borderline low voltage, extremity leads Minimal ST elevation, inferior leads Electronically Signed On 08-10-2021 7:20:14 PST by Joaquim Vera M.D. /[id number]
== END 2021-08-09 11:10 | disposition left against medical advice (07) | DRG 313 ==
LOC: ED 20:08 → MEDSUR 08-09 01:24
PROVIDERS: ADMIT Internal Medicine; ATTEND Internal Medicine

== ENCOUNTER 2024-04-27 14:57 | Inpatient (IN) ==
[2024-04-27] MEDS ORDERED: MAGNESIUM SULFATE 2 GM/50 ML BAG IV PRN (15:12)
[2024-04-27] MEDS ORDERED: METOCLOPRAMIDE 10 MG/2 ML VIAL IV PRN (15:12)
[2024-04-27] MEDS ORDERED: POTASSIUM CHLORIDE 20 MEQ TABLET PO PRN ×2 (15:12)
[2024-04-27] MEDS ORDERED: ONDANSETRON 4 MG/2 ML VIAL IV PRN (15:12)
[2024-04-27] MEDS ORDERED: POLYETHYLENE GLYCOL 3350 17 GM PACKET PO PRN (15:12)
[2024-04-27] MEDS ORDERED: SENNOSIDES 1 TABLET PO PRN (15:12)
[2024-04-27] MEDS ORDERED: DEXTROSE 31 GM ORAL.SUSP PO PRN (15:12)
[2024-04-27] MEDS ORDERED: POTASSIUM CHLORIDE 40 MEQ in DEXTROSE 5% IN WATER 500 ML IV PRN (15:12)
[2024-04-27] MEDS ORDERED: DEXTROSE 50% 50 ML VIAL IV PRN (15:12)
[2024-04-27] MEDS ORDERED: ENALAPRILAT 1.25 MG/ML VIAL IV PRN (15:16)
[2024-04-27] MEDS: AZITHROMYCIN 500 MG in DEXTROSE 5% IN WATER 250 ML IV SCH (17:51)
[2024-04-27] MEDS: INSULIN LISPRO 1 UNIT/0.01 ML UNIT SQ SCH (17:55)
[2024-04-27] MEDS: SODIUM CHLORIDE 1 GM TABLET PO SCH (17:58)
[2024-04-27] MEDS: IPRATROPIUM/ALBUTEROL 3 ML AMPUL.NEB NEB SCH (18:52)
[2024-04-27] MEDS: BUDESONIDE 0.5 MG/2 ML AMPUL.NEB NEB SCH (18:52)
[2024-04-27] MEDS: DOCUSATE SODIUM 100 MG CAPSULE PO SCH (20:46)
[2024-04-27] MEDS: methylPREDNISolone SOD SUCC 125 MG/2 ML VIAL IV SCH (23:49)
[2024-04-27] MEDS: 0.9 % SODIUM CHLORIDE 10 ML SYRINGE IV SCH (23:49)
[2024-04-28 06:03] LABS: Basophils # (Auto) 0 K/mcL (0.00-0.30); Basophils % (Auto) 0 % (0.0-2.0); Eosinophils # (Auto) 0 K/mcL (0.00-0.70); Eosinophils % (Auto) 0 % (0.0-7.0); Hematocrit 53.2 % (40.1-51.0); Lymphocytes # (Auto) 0.28 K/mcL (1.50-4.80); Mean Cell Volume 94.8 fL (80.0-100.0); Mean Platelet Volume 10.4 fL (8.8-12.5); Monocytes # (Auto) 0.12 K/mcL (0.10-0.90); Monocytes % (Auto) 2.1 % (1.0-12.0); Neutrophils % (Auto) 92.7 % (38.0-78.0); Platelet Count 143 K/mcL (140-440); RBC 5.61 M/mcL (4.63-6.08); Red Cell Distribution Width 14.4 % (11.5-14.5); WBC 5.6 K/mcL (4.5-11.0)
[2024-04-28 06:28] LABS: ALT/SGPT 31 U/L (<40); AST/SGOT 28 U/L (<40); Albumin/Globulin Ratio 1.7 (1.0-2.3); Alkaline Phosphatase 82 U/L (39-117); Bilirubin,Direct < 0.2 mg/dL (0-0.3); Bilirubin,Total 0.3 mg/dL (0.1-1.0); Blood Urea Nitrogen 14 mg/dL (8-23); Calcium 9.1 mg/dL (8.6-10.4); Carbon Dioxide 32 mmol/L (22-30); Chloride 92 mmol/L (96-108); Globulin 2.4 gm/dL (2.2-3.7); Glomerular Filtration Rate 104; Glucose 181 mg/dL (70-105); Lactate Dehydrogenase 170 U/L (135-225); Phosphorous 3.6 mg/dL (2.5-4.5); Potassium 5.7 mmol/L (3.3-5.1); Sodium 131 mmol/L (133-145); Triglycerides 58 mg/dL (<150); Uric Acid 5.8 mg/dL (2.5-8.0)
[2024-04-28] MEDS: SODIUM POLYSTYRENE SULFONATE 15 GM/60 ML SUSPENSION PO ONE (08:55)
[2024-04-28] MEDS: ENOXAPARIN 40 MG/0.4 ML SYRINGE SQ SCH (08:58)
[2024-04-28] MEDS: ACETAMINOPHEN 325 MG TABLET PO PRN (09:06)
[2024-04-28] MEDS: LIDOCAINE 4% TOP PATCH TOPICAL SCH (11:22)
[2024-04-28] MEDS: LISINOPRIL 20 MG TABLET PO SCH (11:23)
[2024-04-28] MEDS: methylPREDNISolone SOD SUCC 40 MG/ML VIAL IV SCH (14:45)
[2024-04-28] MEDS: AZITHROMYCIN 500 MG in 0.9 % SODIUM CHLORIDE 250 ML IV SCH (14:45)
[2024-04-28 20:58] LABS: Blood Urea Nitrogen 14 mg/dL (8-23); Carbon Dioxide 29 mmol/L (22-30); Chloride 91 mmol/L (96-108); Glomerular Filtration Rate 98; Glucose 182 mg/dL (70-105); Potassium 5.8 mmol/L (3.3-5.1); Sodium 132 mmol/L (133-145)
[2024-04-28] MEDS: IPRATROPIUM/ALBUTEROL 3 ML AMPUL.NEB NEB PRN (21:07)
[2024-04-28] MEDS: PHENobarbital 32.4 MG TABLET PO SCH (21:18)
[2024-04-28] MEDS: clonazePAM 1 MG TABLET PO SCH (21:18)
[2024-04-29 06:35] LABS: ALT/SGPT 21 U/L (<40); AST/SGOT 18 U/L (<40); Albumin 3.9 gm/dL (3.2-5.2); Albumin/Globulin Ratio 1.6 (1.0-2.3); Alkaline Phosphatase 69 U/L (39-117); Bilirubin,Direct < 0.2 mg/dL (0-0.3); Bilirubin,Total 0.3 mg/dL (0.1-1.0); Blood Urea Nitrogen 12 mg/dL (8-23); Calcium 8.6 mg/dL (8.6-10.4); Carbon Dioxide 33 mmol/L (22-30); Chloride 93 mmol/L (96-108); Globulin 2.4 gm/dL (2.2-3.7); Glomerular Filtration Rate 104; Glucose 134 mg/dL (70-105); Lactate Dehydrogenase 150 U/L (135-225); Phosphorous 3.2 mg/dL (2.5-4.5); Potassium 4.7 mmol/L (3.3-5.1); Sodium 132 mmol/L (133-145); Triglycerides 84 mg/dL (<150); Uric Acid 4.9 mg/dL (2.5-8.0)
[2024-04-29] MEDS: ATORVASTATIN 40 MG TABLET PO SCH (08:59)
[2024-04-29] MEDS ORDERED: methylPREDNISolone SOD SUCC 40 MG/ML VIAL IV SCH (21:00)
== END 2024-04-29 11:05 | disposition home or self-care (01) | DRG 190 ==
LOC: MEDSUR 16:49
PROVIDERS: ADMIT Internal Medicine; ATTEND Internal Medicine